=== PATIENT | male | born 1950 | race African-American/Black ===

== ENCOUNTER 2025-05-08 05:56 | Emergency (ER) | payer MEDICARE, SELFPAY ==
[2025-05-08 05:53] VITALS: PULSE 0; RESP 0
--- OUTSIDE RECORDS SUMMARY | 2025-05-08 06:23 | XMS_ITS | Clinical Summary ---
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 Gender Identity Not on file Sexual Orientation Not on file Plan of Treatment Health Maintenance Due Date Last Done Comments Hepatitis C Virus (HCV) Screening 1950 TdaP Immunization 1950 Cologuard 1994 Colonoscopy 1994 Colorectal Cancer Screening 1994 Immunochemical Fecal Occult Blood 1994 Pneumococcal Immunization (5 0+ years) (1 of 1 - PCV) 12/16/1999 Zoster Immunization (1 of 2) 12/16/1999 SARS-COV-2 Immunization ( - 2023- season) 2024 Respiratory Syncytial Virus (RSV) Immunization (Adult) (1 - 1-dose 75+ series) 2024 Influenza Immunization (#1) 2025 Hepatitis B Immunization Aged Out No longer eligible based on patient's age to complete this topic Human Papillomavirus (HPV) Immunization Aged Out No longer eligible b ased on patient's age to complete this topic Meningococcal Immunization (ACWY) Aged Out No longer eligible based on patient's age to complete this topic Rotavirus Immunization Aged Out No lo nger eligible based on patient's age to complete this topic
--- OUTSIDE RECORDS SUMMARY | 2025-05-08 06:23 | XMS_ITS | Encounter Summary ---
Author Organization [facility] Healthcare Address [address] [place] [id number] Care Team Providers Care Marketing Recruiter Name Role Phone Rudolph Daniel MD, Yonas Jiménez Primary Care Provide r Encounter Details Date Type Department Care Team ([facility] st Contact Info) Description 10/19/2024 Telephone [facility] Medical [facility] Primary Care [phone] [phone] Yonas Galdamez Jr., MD [facility] [address] Social History Tobacco Use Types Packs/Day Years Used Date Smoking Tobacco: Former Cigarettes 2017 Smokeless Tobacco: Never AUDIT-C Answer Date Recorded Q1: How often do you have a drink containing alc ohol? 2-4 times a month 03/17/2024 Q2: How many drinks containi ng alcohol do you have on a typical day when you are drinking? 1 or 2 03/17/2024 Q3: How often do you have si x or more drinks on one occasion? Never 03/17/2024 PHQ-2 Answer Date Recorded PHQ-2 Total Score (If total score is 3 or more points, staff should administer the PHQ-9) 0 03/17/2024 PHQ-9 Answer Date Recorded PHQ-9 Total Score 0 03/17/2024 Sex and Gender Information Value Date Recorded Sex Assigned at Not on file Legal Sex Male 11:03 AM CDT Gender Identity Not on file Sexual Orientation Not on file documented as of this encounter Plan of Treatment Not on file documented as of this encounter Visit Diagnoses Not on filedocumented in this encounter Care Teams Marketing Recruiter Relationship Specialty Start Date End Date Yonas Galdamez Jr., MD [address] [place] [id number] PCP - General Internal Medicine 06/14/21 documented as of this encounter
--- OUTSIDE RECORDS SUMMARY | 2025-05-08 06:23 | XMS_ITS | Clinical Summary ---
Author Organization [facility] Address [address] [place] [address] Care Team Providers Care Contract Lead Name Role Phone Rudolph Daniel MD, Nancy Jiménez Primary Care Provide r Allergies No known active allergies Medications multivitamin with folic acid 400 mcg tablet Take 1 tablet by mouth daily Centrum Silver Adult Active tamsulosin (FLOMAX) 0.4 mg extended release capsuleIndications:B enign prostatic hyperplasia with urinary frequency Take 1 capsule (0.4 mg total) by mouth daily 90 capsule 4 5 Active amLODIPine (NORVASC) 10 mg tabletIndications:Pr imary hypertension Take 1 tablet (10 mg total) by mouth daily 90 tablet 3 5 Active aspirin 81 mg chewable tabletIndications:Ce rebral Thromboembolism Prevention,Myocardia l Reinfarction Prevention Take 1 tablet (81 mg total) by mouth daily 100 tablet 3 5 03/23/20 Active atorvastatin (LIPITOR) 40 mg tabletIndications:Mi xed hyperlipidemia Take 1 tablet (40 mg total) by mouth daily 90 tablet 3 5 Active clopidogreL (PLAVIX) 75 mg tabletIndications:Co ronary artery disease involving eyak coronary artery of eyak heart without angina pectoris Take 1 tablet (75 mg total) by mouth daily 90 tablet 3 5 Active propranolol LA (INDERAL LA) 80 mg 24 hr capsuleIndications:C oronary artery disease involving eyak coronary artery of eyak heart without angina pectoris,Essential tremor Take 1 capsule (80 mg total) by mouth daily 90 capsule 3 06/26/03/23/20 26 Active Active Problems Problem Noted Date Diagnosed Date Essential tremor 03/17/2024 Assessment & Plan (03/20/2025 1:25 PM CDT): Discussed potential for US treatment, he does not want it Will continue propranolol Encounter for Medicare annual wellness exam 10/29 Assessment & Plan (03/20/2025 1:20 PM CDT): Reviewed previous labs and diagnostic test results. Chronic medical problems evaluated and management plans discussed with the patient. Prescription medications, supplements, vitamins and immunizations reviewed. Wear seatbelts. Use sunscreen. Discussed healthy diet and disease prevention and controlling portions including alcohol Discussed importance of scheduling recommended screening tests. Discussed importance of regular physical examinations for health maintenance. Discussed importance of a living will, advanced directives and establishing or updating healthcare power of assistant city attorney document and providing our office with a copy. Assessment & Plan (03/17/2024 12:43 PM CDT): Reviewed previous labs and diagnostic test results. Chronic medical problems evaluated and management plans discussed with the patient. Prescription medications, supplements, vitamins and immunizations reviewed. Wear seatbelts. Use sunscreen. Discussed healthy diet and disease prevention and controlling portions including alcohol Discussed importance of scheduling recommended screening tests. Discussed importance of regular physical examinations for health maintenance. Discussed importance of a living will, advanced directives and establishing or updating healthcare power of assistant city attorney document and providing our office with a copy. Assessment & Plan (02/16/2023 1:07 PM CDT): Reviewed previous labs and diagnostic test results. Chronic medical problems evaluated and management plans discussed with the patient. Prescription medications, supplements, vitamins and immunizations reviewed. Wear seatbelts. Use sunscreen. Discussed healthy diet and disease prevention and controlling portions including alcohol Discussed importance of scheduling recommended screening tests. Discussed importance of regular physical examinations for health maintenance. Discussed importance of a living will, advanced directives and establishing or updating healthcare power of assistant city attorney document and providing our office with a copy. Assessment & Plan (11/12/2021 9:38 AM EASTERN PHILOSOPHY PROFESSOR): Reviewed previous labs and diagnostic test results. Chronic medical problems evaluated and management plans discussed with the patient. Prescription medications, supplements, vitamins and immunizations reviewed. Wear seatbelts. Use sunscreen. Discussed healthy diet and disease prevention and controlling portions including alcohol Discussed importance of scheduling recommended screening tests. Discussed importance of regular physical examinations for health maintenance. Discussed importance of a living will, advanced directives and establishing or updating healthcare power of assistant city attorney document and providing our office with a copy. He is refusing the pneumo vaccine because he wishes to look into this more. Nonrheumatic aortic (valve) insufficiency 2021 Assessment & Plan (02/16/2023 1:16 PM CDT): Chronic stable Well controlled Continue current prescribed medications at current dose Assessment & Plan (11/13/2022 2:15 PM EASTERN PHILOSOPHY PROFESSOR): Patient had moderate aortic valve insufficiency. His blood pressure is still high. I recommended increasing the Coreg to 25 mg p.o. b.i.d. and continuing rest of the medicines. He wishes not to go to to different doctors. He wants to follow-up with you only. I recommended him to have repeat echo Doppler in 6 months. Please order the echo to reassess the aortic insufficiency in 6 months. Benign prostatic hyperplasia with urinary freque ncy 06/14/2021 Assessment & Plan (03/20/2025 1:37 PM CDT): Wants to stop flomax Assessment & Plan (11/12/2021 9:42 AM EASTERN PHILOSOPHY PROFESSOR): Wants to stop flomax Primary hypertension 06/13/2021 Assessment & Plan (03/20/2025 1:37 PM CDT): Chronic stable Well controlled Continue current prescribed medications lisinopril amlodipine, propanolol at current dose Assessment & Plan (03/17/2024 12:42 PM CDT): Chronic stable Well controlled Continue current prescribed medications lisinopril amlodipine at current dose Changing coreg to propanol with concerns of ET Assessment & Plan (02/16/2023 1:16 PM CDT): Chronic stable Well controlled Continue current prescribed medications at current dose Assessment & Plan (11/13/2022 2:17 PM EASTERN PHILOSOPHY PROFESSOR): Blood pressure is still high. Patient states he is taking the medications. Continue Norvasc amlodipine. I increased the Coreg to 25 mg p.o. b.i.d.. He wishes to follow-up with you only. I advised him to discuss with you when he sees you tomorrow. Advised him low-salt diet. 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 Advised him to discontinue the Plavix and the continue aspirin. I recommended him to have stress test prior to next appointment to reassess the any ischemia as it will be 2 years since he had the stent by the time. He refuses to have any stress test done. He wishes not to follow-up with the globe mounter. Advised him to contact me if he changes his mind or if he has any symptoms. Advised him to follow-up with you as per his wishes. Patient aware of the risks including myocardial infarction and also. Assessment & Plan (11/12/2021 9:39 AM EASTERN PHILOSOPHY PROFESSOR): Continue medications Explained need for ECHO Assessment & Plan (06/14/2021 10:49 AM CDT): S/p stent placement in the LAD and RCA Continue medications as prescribed Following cardiology CKD (chronic kidney disease), stage I 06/02/2021 Assessment & Plan (03/20/2025 1:37 PM CDT): Monitor function Renally dose medications Assessment & Plan (03/17/2024 12:43 PM CDT): Monitor function Renally dose medications Assessment & Plan (02/16/2023 1:11 PM CDT): Renally dose medications Assessment & Plan (06/14/2021 10:48 AM CDT): Monitor BMP HLD (hyperlipidemia) 05/30/2021 Assessment & Plan (03/20/2025 1:37 PM CDT): Chronic stable Well controlled Continue current prescribed medications lipitor at current dose Assessment & Plan (03/17/2024 12:42 PM CDT): Chronic stable Well controlled Continue current prescribed medications lipitor at current dose Assessment & Plan (02/16/2023 1:11 PM CDT): Chronic stable Well controlled Continue current prescribed medications at current dose Assessment & Plan (11/13/2022 2:17 PM EASTERN PHILOSOPHY PROFESSOR): His recent LDL still high. I advised him to increase the atorvastatin to 80 mg p.o. q.h.s.. Please repeat his lipids and LFTs in 3 months. Advised him heart healthy diet which I discussed with him Assessment & Plan (11/12/2021 9:39 AM EASTERN PHILOSOPHY PROFESSOR): Wants to take two small tablets instead of the one big pill Assessment & Plan (06/14/2021 10:47 AM CDT): Continue lipitor Pulmonary nodule 05/30/2021 Former smoker 05/30/2021 Assessment & Plan (11/12/2021 9:39 AM EASTERN PHILOSOPHY PROFESSOR): Quit back in 2018 Resolved Problems Problem Noted Date Diagnosed Date Resolved Date Abnormal stress test 06/04/2021 023 Mitral valve insufficiency a nd aortic valve insufficiency 06/04/2021 06/04/2021 Nonrheumatic aortic valve stenosis 06/04/2021 11/11/2021 Assessment & Plan (06/14/2021 10:27 AM CDT): Moderate stenosis Chest pain 05/30/2021 11/14/2022 Hypertensive urgency 05/30/2021 023 DVT prophylaxis 05/30/2021 02/16/2023 Clubbing of fingers 05/30/2021 11/14/19 23 Elevated d-dimer 05/30/2021 11/14/2022 Systolic murmur 05/30/2021 11/14/2022 Diastolic murmur 05/30/2021 11/14/2022 Abnormal stress test 021 Hyponatremia 11/14/2022 Hyperkalemia 11/14/2022 Encounters Date Type Department Care Team Description 04/26/2025 Telephone [facility] Primary [facility] [address] [place] [phone] Nancy Galdamez Jr., MD Medical Question/Zeferino s 04/19/2025 Results Follow-Up [facility] [address] [place] [phone] Rosa Gonsalez MA Transthoracic Echo (TTE) Complete W Doppler/CF 04/14/2025 8:53 AM CDT - 04/14/2025 11:59 PM CDT Hospital Encounter [facility] Cardiac Testing [address] [place] [address] Nonrheumatic aortic (valve) insufficiency Discharge Disposition: Discharge to home or self care 03/29/2025 11:35 AM CDT Lab [facility] Office Building [address] [place] [phone] CKD (chronic kidney disease), stage I 03/23/[address] [phone] Nancy Galdamez Jr., MD Med Refill 03/21/[address] [phone] Nancy Galdamez Jr., MD 03/20/2025 2:10 PM CDT Lab [facility] Building [address] [place] [phone] Encounter for Medicare annual wellness exam; Pain in right testicle; Right varicocele 03/20/2025 1:00 PM CDT Office Visit [address] [phone] Nancy Galdamez Jr., MD Encounter for Medicare annual wellness exam (Primary Dx); Essential tremor; Primary hypertension; CKD (chronic kidney disease), stage I; Pure hypercholesterolemia; 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; Benign prostatic hyperplasia with urinary frequency; Pain in right testicle; Right varicocele; Mixed hyperlipidemia; Nonrheumatic aortic (valve) insufficiency 03/20/2025 Letter (Out) [address] [phone] from Last 3 Months Immunizations Immunization Administration Dates Next Due Hep A / Hep B 05/17/2024 Influenza, Quadrivalent, Hig h Dose, Preservative Free, Intrr 07/05/2023,08/08/2022,06/14/2021 Influenza, Trivalent, High D ose, Split, Preservative Free, Intramuscular 05/17/2024 Moderna SARS-CoV-2 Monovalen t Vaccination (12+ YRS) 08/23/2021,08/10/2021 Pneumococcal Conjugate PCV 13 11/12/2021(Deferre d: Patient Refused) Pneumococcal Conjugate Pcv20 03/17/2024 Tdap 04/13/2024 ZOSTER Recombinant 05/17/2024 Surgical History Surgery Date Site/Laterality Comments CORONARY ANGIOPLASTY 06/04/2021 LAD CARDIAC CATHETERIZATION 06/04/2021 PCI Medical History Medical History Date Comments Coronary artery disease Family History Medical History Relation Name Comments No Known Problems Father No Known Problems Mother Relation Name Status Comments Father Mother Social History Tobacco Use Types Packs/Day Years Used Date Smoking Tobacco: Former Cigarettes 1 2017 Smokeless Tobacco: Never Tobacco Cessation:Counseling Given: Not Answered AUDIT-C Answer Date Recorded Q1: How often do you have a drink containing alc ohol? 2-4 times a month 03/20/2025 Q2: How many drinks containi ng alcohol do you have on a typical day when you are drinking? 1 or 2 03/20/2025 Q3: How often do you have si x or more drinks on one occasion? Never 03/20/2025 PHQ-2 Answer Date Recorded PHQ-2 Total Score (If total score is 3 or more points, staff should administer the PHQ-9) 0 03/20/2025 PHQ-9 Answer Date Recorded PHQ-9 Total Score 0 03/17/2024 Sex and Gender Information Value Date Recorded Sex Assigned at Not on file Legal Sex Male 11:03 AM CDT Gender Identity Not on file Sexual Orientation Not on file Obstetrics History Last Filed Vital Signs Vital Sign Reading Time Taken Comments Blood Pressure 126/60 03/20/2025 1:13 PM CDT Pulse 66 03/20/2025 1:13 PM CDT Temperature 36.8 C (98.3 F) 03/20/2025 1:13 PM CDT Respiratory Rate 18 03/20/2025 1:13 PM CDT Oxygen Saturation 97% 03/20/2025 1:13 PM CDT Inhaled Oxygen Concentration - - Weight 60.3 kg (133 lb) 03/20/2025 1:13 PM CDT Height 165.1 cm (5' 5) 03/20/2025 1:13 PM CDT Body Mass Index 22.13 03/20/2025 1:13 PM CDT Plan of Treatment Health Maintenance Due Date Last Done Comments Covid-19 Vaccine ( season) 2024 08/08/2022, 08/23/2021, 08/10/2021, Additional history exists Influenza Vaccine (#1) 2025 , 07/05/2023, 08/08/2022, Additional history exists Depression Screening 03/20/2026 03/20/2025, 03/17/2024, 03/17/2024, Additional history exists Fall Risk Assessment 03/20/2026 03/20/2025, 03/17/2024, 02/16/2023, Additional history exists Well Visit 65+ 03/20/2026 03/20/2025, 02/27, 02/16/2023, Additional history exists Zoster Vaccine (2 of 2) 03/20/2026 05/17/2024 Post poned from 07/12/2024 (Insurance / Financial) Prostate Cancer Screening-PSA 03/20/2027 03/20/2025, 03/17/2024, 11/04/2021 Hepatitis C Screening Completed 11/04/2021 Abdominal Aortic Aneurysm (AAA) Screen Completed 02/04/2024 Pneumococcal vaccine 65+ Completed 03/17/2024 DTaP/Tdap/Td Vaccine Discontinued 04/13/2024 Hepatitis B Screening Completed 05/17/2024 Colon Cancer Screening-Colonoscopy Discontinued Medical Devices Implanted Type Area Employment Attorney Device Identifier Shelf Expiration Date Model / Serial / Lot [employer] X [id number] Resolute Mil 3.5mm 2.1-2.7fr 15mm 140cm Rapid Exchange - [id number] Implanted:Qty: 1 on 06/04/2021 by Sean Aponte MD at [facility] [employer] 03/24/2024 [id number] / / [id number] [employer] 92774-02 Perclose 6fr Suture Mediate Knot Push Vascular Device Closure - [id number] Implanted:Qty: 1 on 06/04/2021 by Sean Aponte MD at [facility] [employer] 01/25/2023 [id number] / / [id number] [employer] X [id number] Resolute Isabella 2.5mm 2.1-2.7fr 15mm 140cm Rapid Exchange - [id number] Implanted:Qty: 1 on 06/05/2021 by Sean Aponte MD at [facility] [employer] 01/29/2024 [id number] / / [id number] [employer] [id number] Perclose 6fr Suture Mediate Knot Push Vascular Device Closure - [id number] Implanted:Qty: 1 on 06/05/2021 by Sean Aponte MD at [facility] [employer] 12/26/2022 [id number] / / [id number] Procedures Procedure Name Priority Date/Time Associated Diagnosis Comments TRANSTHORACIC ECHO (TTE) COMPLETE W DOPPLER/CF WO CONTRAST Routine 04/14/2025 9:40 AM CDT Nonrheumatic aortic (valve) insufficiency EGFR Routine 03/29/2025 12:05 PM CDT CKD (chronic kidney disease), stage I BASIC METABOLIC PANEL Routine 03/29/2025 12:05 PM CDT CKD (chronic kidney disease), stage I EGFR Routine 03/20/2025 2:02 PM CDT Encounter for Medicare annual wellness exam DIFFERENTIAL AUTO Routine 03/20/2025 2:0 2 PM CDT Encounter for Medicare annual wellness exam LIPID PANEL Routine 03/20/2025 2:02 PM CDT Encounter for Medicare annual wellness exam PSA SCREEN Routine 03/20/2025 2:02 PM CDT Pain in right testicle Right varicocele CBC WITH AUTO DIFFERENTIAL Routine 03/20/2025 2:02 PM CDT Encounter for Medicare annual wellness exam COMPREHENSIVE METABOLIC PANEL Routine 03/20/2025 2:02 PM CDT Encounter for Medicare annual wellness exam US ABDOMINAL AORTIC ANEURYSM SCREENING Schedule Routine, Read Routine (OP Routine) 02/04/2024 2:15 PM CDT 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 Former smoker Nonrheumatic aortic (valve) insufficiency HEPATITIS C ANTIBODY Routine 11/04/2021 11:24 AM EASTERN PHILOSOPHY PROFESSOR Preventative health care from Last 3 Months or Most Recently Relevant to Health Maintenance Results * TRANSTHORACIC ECHO (TTE) COMPLETE W DOPPLER/CF WO CONTRAST (04/14/2025 9:40 AM CDT) Estimated EF 55-60 % CONS SCIMAGE EF Mod BP 52 % CONS SCIMAGE Anatomical Region Laterality Modality Ultrasound 04/14/2025 9:08 AM CDT Narrative 04/18/2025 3:53 PM CDT Transthoracic Echocardiographic Report Patient Name: ETHAN COOPER : 1950 (74y 3m) Gender: M Study Date: 04/14/2025 09:08:54 AM Ht(Inch): 65 Wt(Lb): 133 BSA: 1.66 Management Expert: Leora Bailey RDCS Order Provider: NANCY GALDAMEZ Heart Rate: 78 BMI: 22.13 BP: 126 / 60 Ref Provider: NANCY GALDAMEZ PROCEDURES: Echocardiographic Report: ([id number]) Transthoracic complete echo, 2D, spectral and tissue Doppler, color flow Doppler, M-mode. INDICATIONS: I35.1 Nonrheumatic aortic (valve) insufficiency. FINDINGS: Left Ventricle: Normal left ventricular cavity size. Normal Left ventricular wall thickness. The Ejection Fraction (Kaye's) is measured at 52 %. The Ejection Fraction is visually estimated to be 55-60 %. Diastolic Function E to A reversal Suggestive of abnormal relaxation during early diastole. Right Ventricle: Normal right ventricular size. Normal right ventricular systolic function. Left Atrium: Mildly dilated left atrium. Right Atrium: The right atrium is normal in size. Atrial Septum: The interatrial septum is normal in appearance. Mitral Valve: There is mild to moderate Mitral regurgitation. No mitral valve stenosis. The mean transmitral gradient is: 69 mmHg. There is no evidence of mitral valve prolapse. Aortic Valve: Findings are consistent with a possible bicuspid aortic valve. Aortic cusps appear severely calcified. Mild aortic valve regurgitation. Moderate aortic valve stenosis. The mean transaortic gradient is 28 mmHg. Tricuspid Valve: There is trace tricuspid regurgitation. PASP cannot be evaluated due to lack of adequate TR jet. No tricuspid valve stenosis. There is no evidence of tricuspid valve prolapse. Pulmonic Valve: No evidence of pulmonic regurgitation. No stenosis present. Pericardium: No pericardial effusion. Aorta: Normal aortic root. CONCLUSIONS: 1. Normal left ventricular cavity size. The Ejection Fraction (Kaye's) is measured at 52 %. The Ejection Fraction is visually estimated to be 55-60 %. Diastolic Function E to A reversal Suggestive of abnormal relaxation during early diastole. 2. Normal right ventricular systolic function. 3. Mildly dilated left atrium. 4. Findings are consistent with a possible bicuspid aortic valve. Aortic cusps appear severely calcified. Mild aortic valve regurgitation. Moderate aortic valve stenosis. MEASUREMENTS: 2D/MM Value Range Doppler Value LVIDd 2D 5.68 cm [ 3.50 - 5.70 ] AV Peak Celestino 3.53 m/s LVIDs 2D 4.03 cm [ 3.10 - 4.60 ] AV Peak PG 49.84 mmHg IVSd 2D 1.07 cm [ 0.60 - 1.20 ] AV Mean PG 28.00 mmHg LVPWd 2D 1.15 cm [ 0.60 - 1.10 ] AV VTI 78.60 cm LV Thickness Ratio 0.93 LVOT Peak Celestino 1.18 m/s LV Mass 2D 264.21 g LVOT Peak PG 5.57 mmHg LV Mass Index 2D 159.16 g/m2 LVOT Mean PG 3.00 mmHg RWT 0.40 LVOT VTI 27.30 cm EDV Mod BP 163.00 ml [ 62.00 - 150.00 ] LVOT Diam 2.00 cm LV EDV Index 98.19 ml/m2 SV LVOT 86.00 cm3 ESV Mod BP 78.80 ml [ 21.00 - 61.00 ] HUNTER VTI 1.09 cm2 EF Mod BP 52 % [ 52 - 72 ] HUNTER Vmax 1.05 cm2 Visually Estimated EF 55-60 % LVOT/AV VTI 0.35 - Dimensionless index (DVI) LA Dimension 2D 4.10 cm [ 1.90 - 4.00 ] AI Peak Celestino 4.05 m/s LA Length 2C 5.18 cm AI Peak PG 66.00 mmHg LA Length 4C 5.85 cm AI Decel Letcher 5.29 m/s2 LA Volume BP 80.40 ml AI PHT 230.00 ms LA Volume Index 48.43 ml/m2 [ 16.00 - 34.00 ] MV E Peak Celestino 0.99 m/s MV Annulus 2D 0.50 cm MV A Peak Celestino 1.09 m/s TAPSE 2.17 cm [ 1.71 - 5.00 ] MV E/A 0.90 ratio RA Volume 30.80 ml MV Peak Celestino 5.19 m/s RA Volume Index 18.55 ml/m2 MV Peak PG 107.74 mmHg AoR Diam 2D 2.90 cm [ 2.00 - 3.70 ] MV Mean PG 69.00 mmHg Ao Root Index 1.75 cm/m2 [ 1.00 - 2.00 ] MV VTI 195.00 cm MV Decel Time 201.00 msec Med E` Celestino 0.06 m/s Lat E` Celestino 0.07 m/s Average E/E` 1523.08 MR Peak Celestino 5.28 m/s MR Peak PG 111.51 mmHg MR Mean PG 71.00 mmHg MR VTI 200.0 cm TV Peak Celestino 0.54 m/s TV Peak PG 1.17 mmHg RV S` 0.10 m/s TR Peak Celestino 2.74 m/s TR Peak PG 30.0 mmHg PV Peak Celestino 0.80 m/s PV Peak PG 2.56 mmHg - ATTESTATION: I have reviewed and interpreted the pertinent images and measurements of this study. I attest to the conclusions in the final report that is provided above. DISCLAIMER: The study images and the final report will be retained in the patient chart by the [facility] Laboratory for the legally required time period. This chart constitutes the legal record of any testing performed. Electronically Signed By: Hiram Cohn MD 04/18/2025 3:53:28 PM CDT Procedure Note Hiram Cohn MD - 04/18/2025 Transthoracic Echocardiographic Report Patient Name: ETHAN COOPER : 1950 (74y 3m) Gender: M Study Date: 04/14/2025 09:08:54 AM Ht(Inch): 65 Wt(Lb): 133 BSA: 1.66 Management Expert: Leora Bailey [facility] [email or web address]] Order Provider: NANCY GALDAMEZ Heart Rate: 78 BMI: 22.13 BP: 126 / 60 Ref Provider: NANCY GALDAMEZ PROCEDURES: Echocardiographic Report: ([id number]) Transthoracic complete echo, 2D,spectral and tissue Doppler, color flow Doppler, M-mode. INDICATIONS: I35.1 Nonrheumatic aortic (valve) insufficiency. FINDINGS: Left Ventricle: Normal left ventricular cavity size. Normal Leftventricular wall thickness. The Ejection Fraction (Kaye's) is measured at 52 %. TheEjection Fraction is visually estimated to be 55-60 %. Diastolic Function E to A reversalSuggestive of abnormal relaxation during early diastole. Right Ventricle: Normal right ventricular size. Normal right ventricularsystolic function. Left Atrium: Mildly dilated left atrium. Right Atrium: The right atrium is normal in size. Atrial Septum: The interatrial septum is normal in appearance. Mitral Valve: There is mild to moderate Mitral regurgitation. No mitralvalve stenosis. The mean transmitral gradient is: 69 mmHg. There is no evidence of mitralvalve prolapse. Aortic Valve: Findings are consistent with a possible bicuspid aorticvalve. Aortic cusps appear severely calcified. Mild aortic valve regurgitation. Moderateaortic valve stenosis. The mean transaortic gradient is 28 mmHg. Tricuspid Valve: There is trace tricuspid regurgitation. PASP cannot beevaluated due to lack of adequate TR jet. No tricuspid valve stenosis. There is no evidenceof tricuspid valve prolapse. Pulmonic Valve: No evidence of pulmonic regurgitation. No stenosispresent. Pericardium: No pericardial effusion. Aorta: Normal aortic root. CONCLUSIONS: 1. Normal left ventricular cavity size. The Ejection Fraction (Kaye's)is measured at 52 %. The Ejection Fraction is visually estimated to be 55-60 %. DiastolicFunction E to A reversal Suggestive of abnormal relaxation during early diastole. 2. Normal right ventricular systolic function. 3. Mildly dilated left atrium. 4. Findings are consistent with a possible bicuspid aortic valve. Aorticcusps appear severely calcified. Mild aortic valve regurgitation. Moderate aortic valvestenosis. MEASUREMENTS: 2D/MM Value Range DopplerValue LVIDd 2D 5.68 cm [ 3.50 - 5.70 ] AV Peak Vel3.53 m/s LVIDs 2D 4.03 cm [ 3.10 - 4.60 ] AV Peak PG49.84 mmHg IVSd 2D 1.07 cm [ 0.60 - 1.20 ] AV Mean PG28.00 mmHg LVPWd 2D 1.15 cm [ 0.60 - 1.10 ] AV VTI78.60 cm LV Thickness Ratio 0.93 LVOT PeakVel 1.18 m/s LV Mass 2D 264.21 g LVOT Peak PG5.57 mmHg LV Mass Index 2D 159.16 g/m2 LVOT Mean PG3.00 mmHg RWT 0.40 LVOT VTI27.30 cm EDV Mod BP 163.00 ml [ 62.00 - 150.00 ] LVOT Diam2.00 cm LV EDV Index 98.19 ml/m2 SV LVOT86.00 cm3 ESV Mod BP 78.80 ml [ 21.00 - 61.00 ] HUNTER VTI1.09 cm2 EF Mod BP 52 % [ 52 - 72 ] HUNTER Vmax1.05 cm2 Visually Estimated EF 55-60 % LVOT/AV VTI0.35 - Dimensionless index (DVI) LA Dimension 2D 4.10 cm [ 1.90 - 4.00 ] AI Peak Vel4.05 m/s LA Length 2C 5.18 cm AI Peak PG66.00 mmHg LA Length 4C 5.85 cm AI DecelSlope 5.29 m/s2 LA Volume BP 80.40 ml AI IOC558.00 ms LA Volume Index 48.43 ml/m2 [ 16.00 - 34.00 ] MV E PeakVel 0.99 m/s MV Annulus 2D 0.50 cm MV A PeakVel 1.09 m/s TAPSE 2.17 cm [ 1.71 - 5.00 ] MV E/A0.90 ratio RA Volume 30.80 ml MV Peak Vel5.19 m/s RA Volume Index 18.55 ml/m2 MV Peak PG107.74 mmHg AoR Diam 2D 2.90 cm [ 2.00 - 3.70 ] MV Mean PG69.00 mmHg Ao Root Index 1.75 cm/m2 [ 1.00 - 2.00 ] MV AKW345.00 cm MV Decel Time 201.00 msec Med E` Celestino 0.06 m/s Lat E` Celestino 0.07 m/s Average E/E` 1523.08 MR Peak Celestino 5.28 m/s MR Peak PG 111.51 mmHg MR Mean PG 71.00 mmHg MR VTI 200.0 cm TV Peak Celestino 0.54 m/s TV Peak PG 1.17 mmHg RV S` 0.10 m/s TR Peak Celestino 2.74 m/s TR Peak PG 30.0 mmHg PV Peak Celestino 0.80 m/s PV Peak PG 2.56 mmHg - ATTESTATION: I have reviewed and interpreted the pertinent images and measurements ofthis study. I attest to the conclusions in the final report that is provided above. DISCLAIMER: The study images and the final report will be retained in the patientchart by the [facility] for the legally required time period. This chart constitutesthe legal record of any testing performed. Electronically Signed By: Hiram Cohn MD 04/18/2025 3:53:28 PM CDT us Nancy Galdamez Jr., MD CV ECHO PROCEDURES Fi nal Result * eGFR (03/29/2025 12:05 PM CDT) eGFR 63 >=60 mL/min/1. 73 m2 Comment: Interpretive Data Reference Interval Normal >/= 90 mL/min/1.73m2 Mildly decreased* 60 - 89 mL/min/1.73m2 Mildly to moderately decreased 45 - 59 mL/min/1.73m2 Moderately to severely decreased 30 - 44 mL/min/1.73m2 Severely decreased 15 - 29 mL/min/1.73m2 Kidney Failure < 15 mL/min/1.73m2 *Relative to young adult level Estimated glomerular filtration rate is determined by the 2020 CKD-EPI equation recommended by the National Kidney Foundation (A Unifying Approach to GFR Estimation: Recommendations of the NKF-ASK Task Force on Reassessing the Inclusion of Race in Diagnosing Kidney Disease, JASN 2020). The CKD-EPI equation should not be used for patients with unstable renal function and has not been validated in children and those over 70. Current interpretive data was last reviewed 2021. Testing performed by: [address] [address] Blood 03/29/2025 12:0 5 PM CDT 03/29/2025 1:46 PM CDT us Nancy Galdamez Jr., MD LAB BLOOD ORDERABLES Final Result [facility] [address] [facility] [place] [address] * Basic metabolic panel (03/29/2025 12:05 PM CDT) Pathologist [facility] Sodium 139 135 - 145 mmol/L Comment:Testing performed by : [address] [address] Potassium, pl 4.9 3.3 - 4.9 mmol/L JUDI Comment:Testing performed by : [address] [address] Chloride 107 97 - 110 mmol/L JUDI Comment:Testing performed by : [address] [address] CO2 24 22 - 32 mmol/L JUDI Comment:Testing performed by : [address] [address] Anion gap 8 2 - 15 mmol/L JUDI Comment:Testing performed by : [address] [address] BUN 16 6 - 25 mg/dL JUDI Comment:Testing performed by : [address] [address] Creatinine 1.20 0.80 - 1.30 mg/dL JUDI Comment:Testing performed by : [address] [address] Glucose 103 70 - 199 mg/dL JUDI Comment: Interpretive Data Fasting glucose >/= 126 mg/dl is diagnostic for diabetes. Fasting is defined as no caloric intake for at least 8 hours. Fasting glucose between 100 mg/dl to 125 mg/dl is diagnostic of prediabetes. In a patient with classic symptoms of hyperglycemia or hyperglycemic crisis, a random glucose >/= 200 mg/dl is diagnostic for diabetes. In the absence of unequivocal hyperglycemia, results should be confirmed by repeat testing. The classification and Diagnosis of Diabetes Diabetes Care 202; 46: S19-S40. Current interpretive data was last revised 2022. Testing performed by: [address] [address] Calcium 9.7 8.5 - 10.3 mg/dL JUDI Comment:Testing performed by : [address] [address] Blood 03/29/2025 12:0 5 PM CDT 03/29/2025 1:46 PM CDT us Nancy Galdamez Jr., MD LAB BLOOD ORDERABLES Final Result [facility] [address] [facility] [place] [address] * (ABNORMAL) eGFR (03/20/2025 2:02 PM CDT) eGFR 48(L) >=60 mL/min/1. 73 m2 Comment: Interpretive Data Reference Interval Normal >/= 90 mL/min/1.73m2 Mildly decreased* 60 - 89 mL/min/1.73m2 Mildly to moderately decreased 45 - 59 mL/min/1.73m2 Moderately to severely decreased 30 - 44 mL/min/1.73m2 Severely decreased 15 - 29 mL/min/1.73m2 Kidney Failure < 15 mL/min/1.73m2 *Relative to young adult level Estimated glomerular filtration rate is determined by the 2020 CKD-EPI equation recommended by the National Kidney Foundation (A Unifying Approach to GFR Estimation: Recommendations of the NKF-ASK Task Force on Reassessing the Inclusion of Race in Diagnosing Kidney Disease, JASN 2020). The CKD-EPI equation should not be used for patients with unstable renal function and has not been validated in children and those over 70. Current interpretive data was last reviewed 2021. Testing performed by: [address] [address] Blood 03/20/2025 2:02 PM CDT 03/20/2025 3:53 PM CDT Nancy Galdamez Jr., MD LAB BLOOD ORDERABLES Final Result [facility] [address] [facility] [place] [address] * (ABNORMAL) Differential, auto (03/20/2025 2:02 PM CDT) Neutrophil abs 1.43(L) 1.50 - 6.50 K/cumm Comment:Testing performed by : [address] [address] Imm gran abs 0.01 0.00 - 0.10 K/cumm JUDI Comment:Testing performed by : [address] [address] Lymphocyte abs 1.36 0.80 - 3.30 K/cumm JUDI Comment:Testing performed by : [address] [address] Monocyte abs 0.43 0.20 - 0.80 K/cumm [facility] Comment:Testing performed by : [address] [address] Eosinophil abs 0.09 0.00 - 0.50 K/cumm [facility] Comment:Testing performed by : [address], [place]., [address] Basophil abs 0.03 0.00 - 0.10 K/cumm [facility] Comment:Testing performed by : [address] [address] Neutrophil pct 42.7 % [facility] Comment: Interpretive Data Percent cell count reference ranges are not reported, since discordance with absolute values may lead to misinterpretation of CBC data. Current Interpretive Data was last revised on 2018. Testing performed by: [address] [address] Imm gran pct 0.3 % [facility] Comment: Interpretive Data Percent cell count reference ranges are not reported, since discordance with absolute values may lead to misinterpretation of CBC data. Current Interpretive Data was last revised on 2018. Testing performed by: [address] [address] Lymphocyte pct 40.6 % [facility] Comment: Interpretive Data Percent cell count reference ranges are not reported, since discordance with absolute values may lead to misinterpretation of CBC data. Current Interpretive Data was last revised on 2018. Testing performed by: [address] [address] Monocyte pct 12.8 % [facility] Comment: Interpretive Data Percent cell count reference ranges are not reported, since discordance with absolute values may lead to misinterpretation of CBC data. Current Interpretive Data was last revised on 2018. Testing performed by: [address] [address] Eosinophil pct 2.7 % [facility] Comment: Interpretive Data Percent cell count reference ranges are not reported, since discordance with absolute values may lead to misinterpretation of CBC data. Current Interpretive Data was last revised on 2018. Testing performed by: [address] [address] Basophil pct 0.9 % [facility] Comment: Interpretive Data Percent cell count reference ranges are not reported, since discordance with absolute values may lead to misinterpretation of CBC data. Current Interpretive Data was last revised on 2018. Testing performed by: [address] [address] Blood 03/20/2025 2:02 PM CDT 03/20/2025 3:56 PM CDT Nancy Galdamez Jr., MD LAB BLOOD ORDERABLES Final Result Performing Organization Address [facility] Co de Phone Number [place] [phone] [facility] [place] [address] * PSA screen (03/20/2025 2:02 PM CDT) PSA-Total 3.77 <=6.20 ng/mL Comment: Interpretive Data AGE SEX REFERENCE INTERVAL 0 minutes-150 years Female None 0 minutes-49 years Male None 50-59 years Male 0-3.90 60-69 years Male 0-5.40 70-79 years Male 0-6.20 80-150 years Male 0-6.20 The Adina PSA Total assay procedure was used. Results from different manufacturers or methods may not be comparable. Serial testing should be performed using the same method. Current interpretive data last revised 22. Testing performed by: [facility], [address] [place] [address]., [address] Blood 03/20/2025 2:02 PM CDT 03/20/2025 3:53 PM CDT Nancy Galdamez Jr., MD LAB BLOOD ORDERABLES Final Result Performing Organization Address [facility] de Phone Number [place] [phone] [facility] [place] [address] * (ABNORMAL) CBC with auto differential (03/20/2025 2:02 PM CDT) [facility] WBC 3.35(L) 3.80 - 9.90 K/cumm Comment:Testing performed by : [address], [address] Hgb 12.5(L) 13.0 - 17.5 g/dL JUDI Comment:Testing performed by : [address], [address] Hct 39.0 38.9 - 50.3 % JUDI Comment:Testing performed by : [address], [address] Plt 212 150 - 400 K/cumm JUDI Comment:Testing performed by : [address], [address] MPV 10.8 9.1 - 12.3 fL JUDI Comment:Testing performed by : [address], [address] RBC 3.91(L) 4.30 - 5.80 M/cumm JUDI Comment:Testing performed by : [address], [address] MCV 99.7(H) 81.3 - 96.4 fL JUDI Comment:Testing performed by : [address], [address] MCH 32.0 27.1 - 33.3 pg JUDI Comment:Testing performed by : [address], [address] MCHC 32.1(L) 32.3 - 35.7 g/dL JUDI Comment:Testing performed by : [address], [address] RDW CV 13.1 11.1 - 14.9 % JUDI Comment:Testing performed by : [address], [address] RDW SD 47.8 35.7 - 48.1 fL JUDI Comment:Testing performed by : [address], [address] NRBC abs 0.00 0.00 - 0.01 K/cumm JUDI Comment:Testing performed by : [address] [address] Blood 03/20/2025 2:02 PM CDT 03/20/2025 3:56 PM CDT us Nancy Galdamez Jr., MD LAB BLOOD ORDERABLES Final Result [facility] [address] [facility] Department of Laboratories [place], [place] [id number] * (ABNORMAL) Lipid panel (03/20/2025 2:02 PM CDT) Cholesterol 270(H) 30 - 199 mg/dL Comment: Interpretive Data Ages < or = 19 years Acceptable: <170 mg/dL Borderline high: 170-199 mg/dL High: >or= 200 mg/dL Ages > or = 20 years Desirable: <200 mg/dL Borderline high: 200-239 mg/dL High: >or= 240 mg/dL Literature References: 1. Expert Panel on Integrated Guidelines for Cardiovascular Health and Risk Reduction in Children and Adolescents. Pediatrics 2011;128:S213 2. NCEP Expert Panel. Circulation 2004;110:227 Current Interpretive Data was last revised on 2018. Testing performed by: [address] [address] Triglycerides 102 <=149 mg/dL JUDI MICHEL Comment: Interpretive Data Ages < or = 9 years Acceptable: <75 mg/dL Borderline high: 75-99 mg/dL High: >or= 100 mg/dL Ages 10 to 20 years Acceptable: <90 mg/dL Borderline high: 90-129 mg/dL High: >or= 130 mg/dL Ages > or = 20 years Desirable: <150 mg/dL Borderline high: 150-199 mg/dL High: 200-499 mg/dL Very high: >or= 499 mg/dL Literature References: 1. Expert Panel on Integrated Guidelines for Cardiovascular Health and Risk Reduction in Children and Adolescents. Pediatrics 2011;128:S213 2. NCEP Expert Panel. Circulation 2004;110:227 Current Interpretive Data was last revised on 2018. Testing performed by: [address] [address] HDL 77 >=40 mg/dL JUDI Comment: Interpretive Data Ages < or = 19 years Acceptable: >45 mg/dL Borderline low: 40-45 mg/dL Low: <40 mg/dL Ages > or = 20 years Desirable: >or= 60 mg/dL Low: <40 mg/dL Literature References: 1. Expert Panel on Integrated Guidelines for Cardiovascular Health and Risk Reduction in Children and Adolescents. Pediatrics 2011;128:S213 2. NCEP Expert Panel. Circulation 2004;110:227 Current Interpretive Data was last revised on 2018. Testing performed by: [facility], [address] [place] [address]., [address] LDL, calculated 176(H) <=129 mg/dL JUDI MICHEL Comment: Interpretive Data Ages < or = 19 years Acceptable: <110 mg/dL Borderline high: 110-129 mg/dL High: >or= 130 mg/dL Ages > or = 20 years Optimal: <100 mg/dL Near optimal: 100-129 mg/dL Borderline high: 130-159 mg/dL High: >160 mg/dL Calculated using the Bright LDL-C estimating equation. This equation was implemented on 2024. Prior to this date LDL-C was estimated using the Friedewald equation. Literature References: 1. Expert Panel on Integrated Guidelines for Cardiovascular Health and Risk Reduction in Children and Adolescents. Pediatrics 2011;128:S213 2. NCEP Expert Panel. Circulation 2004;110:227 3. Bright Austin et al. [place] Cardiol. 2019January 26;5(5):540-548. doi: 10.1001/[email or web address].2020.0013 Current Interpretive Data was last revised on 2024. Testing performed by: [facility], [address] [place] [address]., [address] Non-HDL Cholesterol 193 mg/dL JUDI MICHEL Comment: Interpretive Data Ages < or = 19 years Acceptable: <120 mg/dL Borderline high: 120-144 mg/dL High: >145 mg/dL Ages > or = 20 years When triglycerides are >200 mg/dL, Non-HDL cholesterol is a secondary target of therapy with treatment goals that are 30 mg/dL greater than the LDL cholesterol target. Literature References: 1. Expert Panel on Integrated Guidelines for Cardiovascular Health and Risk Reduction in Children and Adolescents. Pediatrics 2011;128:S213 2. NCEP Expert Panel. Circulation 2004;110:227 Current Interpretive Data was last revised on 2018. Testing performed by: [address] [address] Chol/HDL ratio 4 JUDI Comment:Testing performed by : [address] [address] Blood 03/20/2025 2:02 PM CDT 03/20/2025 3:53 PM CDT us Nancy Galdamez Jr., MD LAB BLOOD ORDERABLES Final Result [facility] [place] [address] * (ABNORMAL) Comprehensive metabolic panel (03/20/2025 2:02 PM CDT) Sodium 137 135 - 145 mmol/L Comment:Testing performed by : [address] [address] Potassium, pl 5.2(H) 3.3 - 4.9 mmol/L JUDI Comment:Testing performed by : [address] [address] Chloride 106 97 - 110 mmol/L JUDI Comment:Testing performed by : [address] [address] CO2 20(L) 22 - 32 mmol/L JUDI Comment:Testing performed by : [address] [address] Anion gap 11 2 - 15 mmol/L JUDI Comment:Testing performed by : [address] [address] BUN 28(H) 6 - 25 mg/dL JUDI Comment:Testing performed by : [address] [address] Creatinine 1.50(H) 0.80 - 1.30 mg/dL JUDI Comment:Testing performed by : [address] [place]., [address] Glucose 111 70 - 199 mg/dL JUDI Comment: Interpretive Data Fasting glucose >/= 126 mg/dl is diagnostic for diabetes. Fasting is defined as no caloric intake for at least 8 hours. Fasting glucose between 100 mg/dl to 125 mg/dl is diagnostic of prediabetes. In a patient with classic symptoms of hyperglycemia or hyperglycemic crisis, a random glucose >/= 200 mg/dl is diagnostic for diabetes. In the absence of unequivocal hyperglycemia, results should be confirmed by repeat testing. The classification and Diagnosis of Diabetes Diabetes Care 2021; 46: S19-S40. Current interpretive data was last revised 2022. Testing performed by: [address] [address] Calcium 9.7 8.5 - 10.3 mg/dL JUDI Comment:Testing performed by : [address] [address] Bilirubin, total 0.5 0.1 - 1.2 mg/dL JUDI Comment:Testing performed by : [address] [address] Protein, pl 8.1 6.5 - 8.5 g/dL JUDI Comment:Testing performed by : [address] [address] Albumin 4.2 3.5 - 5.0 g/dL JUDI Comment:Testing performed by : [address] [address] Alk phos 66 40 - 130 Units/L JDUI Comment:Testing performed by : [address] [address] ALT 17 7 - 55 Units/L JUDI Comment:Testing performed by : [address] [address] AST 28 10 - 50 Units/L JUDI Comment:Testing performed by : [address] [address] Blood 03/20/2025 2:02 PM CDT 03/20/2025 3:53 PM CDT us Nancy Galdamez Jr., MD LAB BLOOD ORDERABLES Final Result [facility] [address] [facility] [place] [address] * US Abdominal Aortic Aneurysm Screening (02/04/2024 2:15 PM CDT) Anatomical Region Laterality Modality Abdomen Ultrasound 02/08/2024 3:20 PM CDT Narrative 02/08/2024 3:21 PM CDT EXAM DESCRIPTION: US ABDOMINAL AORTIC ANEURYSM SCREENING REASON FOR STUDY: tobacco smoker TECHNIQUE: Grayscale images acquired of the aorta and stored on PACS. Selected color Doppler and spectral images recorded. COMPARISON: 11/25/2021 FINDINGS: AORTIC CALIBER MAXIMAL PROXIMAL: 2.1 cm. MID: 2.0 cm. DISTAL: 1.4 cm. ILIAC DIAMETER Iliacs not visualized on this exam due to overlying bowel gas. IMPRESSION: No abdominal aortic aneurysm. REFERENCE: Please see below follow up recommendations for abdominal aortic aneurysm surveillance per Society for Vascular Surgery Guidelines: < 2.5 cm No follow up or future screenings necessary 2.52.9 cm Recommended ultrasound follow up every 10 years 3.0-3.9 cm Recommended ultrasound follow up every 3 years 4.0-4.9 cm Recommended ultrasound follow up every 12 months, vascular surgery consult 5.0-5.4 cm Recommended ultrasound follow up every 6 months, vascular surgery consult >= 5.5 cm Referral to vascular surgeon Based upon Society for Vascular Surgery Guidelines: J Vasc Surgery 2008 50: s2s49; updated Sep 2017 J Vasc Surgery 67:277 THIS IS AN ELECTRONICALLY VERIFIED FINAL REPORT 02/08/2024 3:21 PM - Electronically signed by Porfirio Carr M.D. RW: ARGENIS Report ID: [id number] Reading Location: [id number] Procedure Note Porfirio Carr MD - 02/08/2024 EXAM DESCRIPTION: US ABDOMINAL AORTIC ANEURYSM SCREENING REASON FOR STUDY: tobacco smoker TECHNIQUE: Grayscale images acquired of the aorta and stored on PACS.Selected color Doppler and spectral images recorded. COMPARISON: 11/25/2021 FINDINGS: AORTIC CALIBER MAXIMAL PROXIMAL: 2.1 cm. MID: 2.0 cm. DISTAL: 1.4 cm. ILIAC DIAMETER Iliacs not visualized on this exam due to overlying bowel gas. IMPRESSION: No abdominal aortic aneurysm. REFERENCE: Please see below follow up recommendations for abdominal aortic aneurysm surveillance per Society for Vascular Surgery Guidelines: < 2.5 cm No follow up or future screenings necessary 2.52.9 cm Recommended ultrasound follow up every 10 years 3.0-3.9 cm Recommended ultrasound follow up every 3 years 4.0-4.9 cm Recommended ultrasound follow up every 12 months, vascularsurgery consult 5.0-5.4 cm Recommended ultrasound follow up every 6 months, vascularsurgery consult >= 5.5 cm Referral to vascular surgeon Based upon Society for Vascular Surgery Guidelines: J Vasc Surgery 2009Oct 50: s2s49; updated Sep 2017 J Vasc Surgery 67:277 THIS IS AN ELECTRONICALLY VERIFIED FINAL REPORT 02/08/2024 3:21 PM - Electronically signed by Porfirio Carr M.D. RW: ARGENIS Report ID: [id number] Reading Location: [id number] us Nancy Galdamez Jr., MD [facility] PROCEDURES Fin al Result * Hepatitis C antibody (11/04/2021 11:24 AM EASTERN PHILOSOPHY PROFESSOR) Hep C Ab Nonreactive Nonreactive JUDI Comment: Interpretive Data Nonreactive: Antibodies to HCV not detected. Does NOT exclude the possibility of recent exposure to HCV. Equivocal: Equivocal for HCV antibodies. Supplemental molecular testing will be automatically performed to determine infection status in accordance with current CDC screening recommendations. Reactive: Positive for HCV antibodies. This may represent current or past HCV infection. Supplemental molecular testing will be automatically performed to determine current infection status in accordance with current CDC screening recommendations. Interpretive data was last revised on 2019. Blood 11/04/2021 11:2 4 AM EASTERN PHILOSOPHY PROFESSOR 11/04/2021 11:24 AM EASTERN PHILOSOPHY PROFESSOR us Nancy Galdamez Jr., MD LAB MICROBIOLOGY - GE NERAL ORDERABLES Final Result [facility] [address] [facility] Department [place] [employer] [place] [address] from Last 3 Months or Most Recently Relevant to Health Maintenance Insurance MEDICARE [facility] Advance Directives For more information, please contact: [phone] * Full Code (Latest Code Status on File) Date Activated Date Inactivated Comments 05/30/2021 6:03 PM 06/06/2021 9:38 PM Care Teams Contract Lead Relationship Specialty Start Date End Date Nancy Galdamez Jr., MD [address] [place] [id number] PCP - General Internal Medicine 06/14/21
--- OUTSIDE RECORDS SUMMARY | 2025-05-08 06:23 | XMS_ITS | Encounter Summary ---
Author Organization [facility] Healthcare Address [address] [place] [id number] Care Team Providers Care Tree Feller Operator Name Role Phone Rudolph Daniel MD, Yonas Jiménez Primary Care Provide r Encounter Details Date Type Department Care Team (Latest Contact Info) Description 04/19/2025 Results Follow-Up [facility] Medical Group Primary Care [facility] [address] [phone] Rosa Gonsalez MA Transthoracic Echo (TTE) Complete W Doppler/CF Social History Tobacco Use Types Packs/Day Years [...] on file documented as of this encounter Miscellaneous Notes * Telephone Encounter - Rosa Gonsalez MA - 04/19/2025 1:13 PM CDT ----- Message from Yonas Galdamez MD sent at 04/19/2025 6:38 AM CDT ----- Can we contact him and ask if he wants to see a water hauler in [facility] about his aortic valve based onhis ECHO findings. I recommend that he does. ----- Message ----- From: Interface, Cardiology Results In Sent: 04/18/2025 3:53 PM CDT To: Yonas Galdamez Jr., MD documented in this encounter Plan of Treatment Not on file documented as of this encounter Visit Diagnoses Not on filedocumented in this encounter Care Teams Tree Feller Operator Relationship Specialty Start Date End Date Yonas Galdamez Jr., MD [address] [place] [id number] PCP - General Internal Medicine 06/14/21 documented as of this encounter
--- OUTSIDE RECORDS SUMMARY | 2025-05-08 06:23 | XMS_ITS | Encounter Summary ---
Author Organization [facility] Healthcare Address [address] [place] [id number] Care Team Providers Care Commercial Front Load Operator Name Role Phone Rudolph Daniel MD, Yonas Jiménez Primary Care Provide r Reason for Visit * Reason Onset Date Comments Medical Question/Miscellaneous 04/26/2025 Encounter Details Date Type Department Care Team ([facility] Contact Info) Description 04/26/2025 Telephone [facility] [address] [place] [phone] Yonas Galdamez Jr., MD [address] [address] Medical Question/Miscellaneous Social History Tobacco Use Types Packs/Day Years [...] encounter Miscellaneous Notes * Telephone Encounter - Maribel Vargas - 04/26/2025 12:47 PM CDT Medical Question/Miscellaneous Caller???s Concern: Patient called stating he was told to take his blood pressure 1 time a week fora month Week 1 129/60 Week 2 140/60 Week 3 139/62 Week 4 139/61 Week 5 140/66 Does message need to be routed? Yes-FYI Only documented in this encounter Plan of Treatment Not on file documented as of this encounter Visit Diagnoses Not on filedocumented in this encounter Care Teams Commercial Front Load Operator Relationship Specialty Start Date End Date Yonas Galdamez Jr., MD [address] [place] [id number] PCP - General Internal Medicine 06/14/21 documented as of this encounter
--- NOTE | 2025-05-08 06:43 | PC.NURSE ---
EMS arrives- [phone]= Dr. Lopez places ETT at 7.5, 25 at the lip 5 of epi given prior by EMS 0601=Epi given IO 0603= pulse check asystole, Epi given IO 0605= pulse check, PEA 0606= PEA, Epi given IO, Sodium Bicarbonate , Calcium Chloride given IO 0608= pulse check, PEA 0609= asystole 0610= Dr. Lopez called TOD
--- NOTE | 2025-05-08 06:47 | ED_ITS ---
HPI - CPR General Chief Complaint: Cardiac Arrest/CPR Stated Complaint: full arrest Time Seen by Provider: 05/08/25 06:10 History of Present Illness HPI narrative: 74-year-old male with history of cardiac stent presenting to the emergency depart with CPR in process. Apparently patient had a witnessed cardiac arrest and he was found by his son not breathing. He called 911 and instructed him on how to perform CPR. EMS arrived to continue CPR efforts with a Jona device. Right tibial IO was in place, I gel placed. Patient was seen 5 rounds event of intra osseous epinephrine prior to arrival. Patient arrives with asystole on the monitor, transition in the room 5 for evaluation and continue resuscitative efforts. According to family members for collateral formation he was otherwise doing well but this morning started complaining of some epigastric abdominal discomfort and was very diaphoretic. Next thing they know he was unresponsive and not breathing. Total time with CPR approximately 35 minutes [employer] MANA[employer] Review of Systems Review of Systems: ROS unobtainable: Yes unobtainable due to medical condition Exam Narrative: CPR in progress HEAD: Normocephalic, atraumatic EYES: Fixed and dilated pupils ENT: I gel in place NECK: Supple. CHEST: Symmetric chest rise, bilateral clear breath sounds HEART: Cool extremities, asystole on monitor, pulses palpated in the bilateral femorals with Jona device ongoing ABDOMEN: Mildly distended EXTREMITIES: No edema, right tibial IO SKIN: Cool and dry NEURO: GCS 3 Course Vital Signs Vital signs: Vital Signs Pulse Rate 0 L 05/08/25 05:53 Respiratory Rate 0 L 05/08/25 05:53 Pulse Rate 0 L 05/08/25 05:53 Respiratory Rate 0 L 05/08/25 05:53 Oxygen Delivery Bag Valve Mask 05/08/25 06:41 Procedures Intubation Intubation #1: Intubation Date: 05/08/25 Intubation Time: 05:59 Time out performed: Yes sedative: none Mg Given: 0 Mg Given: 0 Laryngoscope: fiber optic video scope Assist Device Used: fiber optic device Tube Size (cm): 7.5 Method of Intubation: orotracheal Number of Attempts: 1 Tube Secured Depth (cm): 25 Tube Secured Location: teeth Tube Placement Confirmation: visualized tube passing through cords, equal breath sounds bilaterally, no breath sounds over epigastrium and confirmation by capnometry Patient Tolerated Procedure: well and no complications Intubation Complications: none MDM - Cardiac Arrest/CPR MDM Narrative Medical decision making narrative: 74-year-old male with history of cardiac stent presenting to the emergency depart with CPR in process. Apparently patient had a witnessed cardiac arrest and he was found by his son not breathing. He called 911 and instructed him on how to perform CPR. EMS arrived to continue CPR efforts with a Jona device. Right tibial IO was in place, I gel placed. Patient was seen 5 rounds event of intra osseous epinephrine prior to arrival. Patient arrives with asystole on the monitor, transition in the room 5 for evaluation and continue resuscitative efforts. According to family members for collateral formation he was otherwise doing well but this morning started complaining of some epigastric abdominal discomfort and was very diaphoretic. Next thing they know he was unresponsive and not breathing. 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 ACLS protocol was followed and continued high quality CPR upon transition to our monitor. He received a total of 3 additional rounds of epinephrine in addition to calcium chloride and sodium bicarbonate for resuscitative efforts. Pulse check conducted every 2 minutes with asystole on the monitor followed by 1 episode of PE a likely ectopic from the epinephrine. Dopamine infusion started at 20 mics per minute as well as a fluid bolus. Subsequent pulse checks revealed asystole and cardiac standstill on bedside echocardiogram. Patient was endotracheally intubated without any difficulty with clear breath sounds and no difficulty with ventilation. Patient underwent greater than 45 minutes of continuous high quality CPR between EMS and our team without any return of spontaneous circulation. Patient is fixed and dilated pupils, clotted ventricular blood on bedside echocardiogram with cardiac standstill. Time of was called at 6:10 a.m. I spoke to the son and daughter in the family waiting room and informed them of patient's . Differential Diagnosis Differential diagnosis: Likely acute massive pulmonary embolism, acute respiratory failure, acute myocardial infarction, cardiac arrest and sudden cardiac Medical Records Attestation: I reviewed the patient's medical records. Critical Care Time Critical Care Time Critical Care Time: Yes Total Critical Care Time: 35 Discharge Plan Discharge Clinical Impression: Cardiac arrest Patient Disposition: Condition: Patient Language: Gu[place] Follow-up/Referrals: PHYSICIAN,LADDER OPERATOR [Primary Care Provider] - Time of Disposition: 06:10
== END 2025-05-08 09:11 | disposition expired ==
PROVIDERS: Emergency Provider Student in an Organized Health Care Education/Training Program
DX: I46.9 Cardiac arrest, cause unspecified (principal)
CPT/HCPCS: 31500; 92950; 96374; 96375; 99285; J0168; J1265